=== PATIENT | male | born 1975 | race Caucasian/White ===

== ENCOUNTER 2017-12-25 17:57 | Emergency (ER) | payer OTHER ==
[~2017-12-25] VITALS: Ht 170.2 cm; Wt 86.2 kg
[2017-12-25] MEDS ORDERED: TRAM1TAB98 (18:07)
== END 2017-12-25 19:16 | disposition home or self-care (01) ==
LOC: ER 17:57
DX: M75.52 Bursitis of left shoulder (principal); M75.51 Bursitis of right shoulder

== ENCOUNTER 2024-09-27 08:43 | Outpatient (CLI) | payer OTHER ==
[~2024-09-27 08:43] MED LIST: TRAM1TAB98
== END 2024-09-27 08:46 | disposition home or self-care (01) ==
LOC: RAD 08:43
PROVIDERS: ATTEND Internal Medicine Rheumatology
DX: M17.12 Unilateral primary osteoarthritis, left knee (principal); M17.11 Unilateral primary osteoarthritis, right knee